=== PATIENT | male | born 1965 | race Caucasian/White ===

== ENCOUNTER → 2016-11-05 | Outpatient (CLI) | payer MEDICARE, OTHER ==
--- NOTE | 2016-11-05 14:33 | XR ---
EXAMINATION TYPE: XR ankle complete RT DATE OF EXAM: 11/05/2016 12:08 PM COMPARISON: NONE HISTORY: 51-year-old male with ankle pain, rolled twice. TECHNIQUE: 3 views FINDINGS: Ankle mortise appears congruent with preservation of the distal tibiofibular overlap. There is anteri or soft tissue swelling. No acute fracture, subluxation, or dislocation seen. IMPRESSION: Anterior soft tissue swelling without acute osseous abnormality seen.
== END ==
LOC: RADXRMAIN 11:49
PROVIDERS: ATTEND Family Medicine
DX: M25.571 Pain in right ankle and joints of right foot (principal)

== ENCOUNTER 2017-12-23 15:34 | Emergency (ER) | payer MEDICARE, OTHER ==
[2017-12-23 15:38] VITALS: BP 154/106; PULSE 95; RESP 18; TEMP 98.4
--- NOTE | 2017-12-23 16:01 | ED ---
Psych HPI - General Chief Complaint: Psychiatric Symptoms Stated Complaint: Mental Health Time Seen by Provider: 12/23/17 15:41 Source: patient, RN notes reviewed Mode of arrival: ambulatory - History of Present Illness Initial Comments: This is a 52-year-old male present emergency Department requesting medication refill. Patient states that he wants to be restarted on his Paxil as he been off for several months. He complains that he hears voices but is not suicidal or homicidal. Here and these for a while. Patient denies any illicit drug use no alcohol abuse. Denies any physical complaints. Patient states that he is not her primary care physician and he has not tried to follow-up on a primary care physician at this time. - Related Data Home Medications Medication Instructions Recorded Confirmed clonazePAM [KlonoPIN] 2 mg PO TID PRN 12/21/13 04/27/14 Previous Rx's Medication Instructions Recorded clonazePAM [KlonoPIN] 2 mg PO TID PRN #6 tab 04/27/14 Allergies Allergy/AdvReac Type Severity Reaction Status Date / Time hydrocodone Allergy Nausea Verified 12/23/17 15:38 Review of Systems ROS Statement: Those systems with pertinent positive or pertinent negative responses have been documented in the HPI. ROS Other: All systems not noted in ROS Statement are negative. Past Medical History Past Medical History: No Reported History History of Any Multi-Drug Resistant Organisms: None Reported Past Surgical History: Orthopedic Surgery Additional Past Surgical History / Comment(s): right ankle. Past Psychological History: ADD/ADHD, Anxiety, Depression, Panic Disorder Smoking Status: Current every day smoker Past Alcohol Use History: None Reported Past Drug Use History: None Reported General Exam Limitations: no limitations General appearance: alert, in no apparent distress Head exam: Present: atraumatic, normocephalic, normal inspection Respiratory exam: Present: normal lung sounds bilaterally. Absent: respiratory distress, wheezes, rales, rhonchi, stridor Cardiovascular Exam: Present: regular rate, normal rhythm, normal heart sounds. Absent: systolic murmur, diastolic murmur, rubs, gallop, clicks Neurological exam: Present: alert Psychiatric exam: Present: normal affect, normal mood Course Vital Signs 12/23/17 15:35 Temperature 98.4 F Pulse Rate 95 Respiratory 18 Rate Blood Pressure 154/106 O2 Sat by Pulse 96 Oximetry Medical Decision Making - Medical Decision Making 52-year-old male presented for medication refill. I requested the patient to be evaluated by psychiatric services given the medication history was seen in the knee has had some auditory hallucinations. Patient refused because he does not want to change into a gown. Patient is making clear conscious decisions patient is not suicidal or homicidal is not agitated he has no bizarre behavior in emergency department. Patient is with family member at this time. Patient will be signed out AGAINST MEDICAL ADVICE. Disposition Clinical Impression: Encounter for medication refill Disposition: Left Against Medical Advice Condition: Stable Referrals: None,Stated [Primary Care Provider] - 1-2 days Time of Disposition: 16:01
== END 2017-12-23 16:16 | disposition left against medical advice (07) ==
LOC: EC 15:34
DX: Z76.0 Encounter for issue of repeat prescription (principal); R44.0 Auditory hallucinations; F17.200 Nicotine dependence, unspecified, uncomplicated; Z88.5 Allergy status to narcotic agent
CPT/HCPCS: 82075; 99284

== ENCOUNTER → 2018-08-16 | Day surgery (SDC) | payer MEDICARE, OTHER ==
[2018-08-11 10:31] VITALS: BMI 31.0
[~2018-08-16] MED LIST: DEXAMETHASONE SOD PHOSPHATE 10 MG/ML 1 ML VIAL IV ONE; FAMOTIDINE 20 MG/2 ML VIAL IV ONE; HYDROmorphone 0.5 MG/0.5 ML SYRINGE IVP PRN; LACTATED RINGERS 1,000 ML IV SCH; LIDOCAINE 1% 20 ML VIAL (10MG/ML) FOR IV START INTRADERMA PRN; LIDOCAINE 1% INJ 10MG/ML (20 ML MDV) ONE; LIDOCAINE 1%-EPI 1:100,000 20 ML VIAL SQ ONE; MIDAZOLAM (PF) 2 MG/2 ML VIAL IV PRN; MIDAZOLAM 2 MG/2 ML VIAL ONE; ONDANSETRON 4 MG/2 ML VIAL IVP ONE; PROPOFOL 10 MG/ML 20 ML VIAL IV ONE; SCOPOLAMINE 1.5MG/72HR PATCH TRANSDERM ONE; SUCCINYLCHOLINE CHLORIDE 100 MG/5 ML SYR IV ONE; ceFAZolin 1,000 MG in DEXTROSE/WATER 1 50ML.BAG IV ONE; fentaNYL (PF) 50 MCG/ML 2 ML AMP ONE
--- NOTE | 2018-08-16 14:18 | P.OP ---
Date of Procedure: 08/16/18 Preoperative Diagnosis: Left anterior neck lipoma Postoperative Diagnosis: Same Procedure(s) Performed: Excision left anterior neck lipoma Anesthesia: CAROLIN Surgeon: Byrno Overton Estimated Blood Loss (ml): 2 Pathology: other (Left anterior neck mass) Condition: stable Disposition: PACU Indications for Procedure: This is a 53-year-old white male with a slowly enlarging left anterior neck mass. Computed tomography scan was most consistent with a lipoma Operative Findings: Approximately 3 cm left anterior neck mass which grossly appeared consistent with a lipoma Description of Procedure: The patient was brought in the operative suite and was a supine position. The patient underwent induction of general anesthesia with oral endotracheal intubation without difficulty. The patient was prepped and draped in usual aseptic fashion. 1% lidocaine with 1 1000 epinephrine was infused subcutaneously and field block fashion. This was left to work for 7 minutes vasoconstrictive effect. A linear incision was then made overlying the mass within a relaxed skin tension line. This was carried sharply through the skin and subcutaneous tissue as well as platysma layer. The lipomatous lesion was identified and excised from the surrounding tissue grossly entirely down to the strap muscles. Hemostasis was gained with electrocautery. Hemostasis was noted to be good. The wound was then closed in layers including the platysmal layer and subcutaneous layers with inverted interrupted 30 and 4-0 Vicryl suture and skin closed with running locking 4-0 Prolene suture. Bacitracin ointment and sterile dressings were placed. The patient was allowed to emerge from anesthesia having tolerated procedure well and was extubated in the operating suite and transferred to postop recovery area in satisfactory condition.
[2018-08-16 14:31] VITALS: TEMP 98.6
[2018-08-16 14:48] VITALS: RESP 16
[2018-08-16 15:21] VITALS: BP 125/86; PULSE 70
== END | disposition home or self-care (01) ==
LOC: OR 11:05
PROVIDERS: ATTEND Otolaryngology
DX: D17.0 Benign lipomatous neoplasm of skin and subcutaneous tissue of head, face and neck (principal); K21.9 Gastro-esophageal reflux disease without esophagitis; J44.9 Chronic obstructive pulmonary disease, unspecified; F17.210 Nicotine dependence, cigarettes, uncomplicated; Z88.5 Allergy status to narcotic agent
CPT/HCPCS: 88304; 21552; C1763; J2250; J1100; J2405; J2001; J3010; J0690; J0330; J2704

== ENCOUNTER 2019-05-26 08:24 | Emergency (ER) | payer MEDICARE, OTHER ==
[2019-05-26 08:34] VITALS: BP 131/93; PULSE 107; RESP 18; TEMP 97.9
[2019-05-26] MEDS ORDERED: PANTOPRAZOLE 40 MG TABLET PO STA (08:45)
--- NOTE | 2019-05-26 08:47 | ED ---
Lower Extremity Injury HPI - General Source: patient, RN notes reviewed Mode of arrival: ambulatory Limitations: no limitations - History of Present Illness MD Complaint: foot injury <Umair Davis - Last Filed: 05/26/19 10:14> <Archana Julio - Last Filed: 05/26/19 10:37> - General Chief Complaint: Extremity Injury, Lower Stated Complaint: Left foot pain/injury Time Seen by Provider: 05/26/19 08:36 - History of Present Illness Initial Comments: This is a 53-year-old male with a history of left ankle surgery in the past who states that he was carotid or about 2 hours ago at his house to get some Pepto- Bismol for his reflux when he rolled his foot. He complains of pain with weightbearing some ecchymosis to the lateral aspect of the left foot. He denies any ankle pain or proximal pain to this no other injuries reported he is having no symptoms right now with respect to reflux he does admit that he drinks on a coughing does smoke cigarettes he has no known history of heart or lung disease. Other than his foot at this time is asymptomatic. (Umair Davis) - Related Data Previous Rx's Medication Instructions Recorded Ibuprofen 800 mg PO Q6HR PRN #20 tablet 05/26/19 Omeprazole [PriLOSEC] 20 mg PO AC-BRKFST #30 cap 05/26/19 Allergies Allergy/AdvReac Type Severity Reaction Status Date / Time hydrocodone AdvReac Nausea Verified 05/26/19 08:31 Review of Systems ROS Other: All systems not noted in ROS Statement are negative. <Umair Davis - Last Filed: 05/26/19 10:14> ROS Other: All systems not noted in ROS Statement are negative. <Archana Julio - Last Filed: 05/26/19 10:37> ROS Statement: Those systems with pertinent positive or pertinent negative responses have been documented in the HPI. Past Medical History Past Medical History: No Reported History Additional Past Medical History / Comment(s): "lesion" on left History of Any Multi-Drug Resistant Organisms: None Reported Past Surgical History: Heart Catheterization, Orthopedic Surgery Additional Past Surgical History / Comment(s): right ankle. Past Anesthesia/Blood Transfusion Reactions: No Reported Reaction Additional Past Anesthesia/Blood Transfusion Reaction / Comment(s): no general anesthesia Past Psychological History: ADD/ADHD, Anxiety, Depression, Panic Disorder Smoking Status: Current every day smoker Past Alcohol Use History: None Reported Past Drug Use History: None Reported - Past Family History Mother Family Medical History: No Reported History <RyanUmair - Last Filed: 05/26/19 10:14> General Exam Limitations: no limitations General appearance: alert, in no apparent distress Head exam: Present: atraumatic, normocephalic, normal inspection Eye exam: Present: normal appearance, PERRL, EOMI. Absent: scleral icterus, conjunctival injection, periorbital swelling ENT exam: Present: normal exam, mucous membranes moist Neck exam: Present: normal inspection. Absent: tenderness, meningismus, lymphadenopathy Respiratory exam: Present: normal lung sounds bilaterally. Absent: respiratory distress, wheezes, rales, rhonchi, stridor Cardiovascular Exam: Present: regular rate, normal rhythm, normal heart sounds. Absent: systolic murmur, diastolic murmur, rubs, gallop, clicks GI/Abdominal exam: Present: soft, normal bowel sounds. Absent: distended, tenderness, guarding, rebound, rigid Extremities exam: Present: full ROM, tenderness (Tenderness palpation over the left lateral foot with some ecchymosis noted no definite step-off or crepitation. There is a well-healed surgical scar to the medial aspect of the ankle.), normal capillary refill. Absent: pedal edema, joint swelling, calf tenderness Back exam: Present: normal inspection Neurological exam: Present: alert, oriented X3, CN II-XII intact Psychiatric exam: Present: normal affect, normal mood Skin exam: Present: warm, dry, intact, normal color. Absent: rash <RyanUmair - Last Filed: 05/26/19 10:14> - General Exam Comments Initial Comments: This is a well-developed well-nourished awake alert oriented 3 male (RyanUmair) Course Vital Signs 05/26/19 08:32 Temperature 97.9 F Pulse Rate 107 H Respiratory 18 Rate Blood Pressure 131/93 O2 Sat by Pulse 97 Oximetry Procedures - Orthopedic Splinting/Casting Injury #1 Side: left Lower Extremity Injury Location: foot Lower Extremity Immobilizer: posterior splint, Cristian wrap, synthetic pre-padded splint Other Orthopedic Equipment: crutches <Archana Julio - Last Filed: 05/26/19 10:37> - Orthopedic Splinting/Casting Injury #1 Additional Comments: She was reevaluated neurovascularly intact. (Archana Julio) Medical Decision Making - EKG Data -: EKG Interpreted by Me EKG shows normal: sinus rhythm - Radiology Data Radiology results: report reviewed (Did review the imaging and report evidence of a proximal fifth left metatarsal fracture.), image reviewed <Umair Davis - Last Filed: 05/26/19 10:14> - Medical Decision Making I did discuss the findings with the patient he will be placed in a splint by my physician graduate assistant. Crutches as well as pain medication also a prescription for Prilosec. He is encouraged to follow-up with a bilingual hr generalist physician as well as with orthopedics and be nonweightbearing (Umair Davis) - EKG Data EKG Comments: EKG shows normal sinus rhythm 86. Interval 150 to QRS duration 94 QT since QTC 370/442 nonspecific inferior figure aeration no acute ST elevation or depressions. (Umair Davis) Disposition Is patient prescribed a controlled substance at d/c from ED?: No <Umair Davis - Last Filed: 05/26/19 10:14> <Archana Julio - Last Filed: 05/26/19 10:37> Clinical Impression: Fracture of foot, Nondisplaced fracture of fifth left metatarsal bone, GERD (gastroesophageal reflux disease) Disposition: HOME SELF-CARE Condition: Good Instructions (If sedation given, give patient instructions): Foot Fracture in Adults (ED), Gastroesophageal Reflux Disease (ED) Additional Instructions: Prescriptions sent to your preferred [facility] pharmacy Prescriptions: Ibuprofen 800 mg PO Q6HR PRN #20 tablet PRN Reason: Pain Omeprazole [PriLOSEC] 20 mg PO AC-BRKFST #30 cap Referrals: None,Stated [Primary Care Provider] - 1-2 days Brandon Amador DO [Doctor of Osteopathic Medicine] - 1-2 days
--- NOTE | 2019-05-26 09:47 | XR ---
EXAMINATION TYPE: XR foot complete LT , 3 VIEWS DATE OF EXAM ORDERED: 05/26/2019 HISTORY: Left foot pain with ecchymosis. COMPARISON: None. FINDINGS: There is mild cystic change in the fifth metatarsal head. There is a minimally displaced f racture the base of the fifth metatarsal. There has been a previous screw fixation of the medial mall eolus. No additional fractures are seen. IMPRESSION: 1. MINIMALLY DISPLACED FRACTURE THE BASE OF THE FIFTH METATARSAL. 2. SCREW FIXATION OF THE MEDIAL MALLEOLUS. CODE A: INITIAL ENCOUNTER FOR CLOSED FRACTURE.
[2019-05-26] MEDS ORDERED: IBUPROFEN 800 MG TAB PO STA (10:20)
== END 2019-05-26 10:39 | disposition home or self-care (01) ==
LOC: EC 08:24
DX: S92.355A Nondisplaced fracture of fifth metatarsal bone, left foot, initial encounter for closed fracture (principal); K21.9 Gastro-esophageal reflux disease without esophagitis; F17.200 Nicotine dependence, unspecified, uncomplicated; Z88.5 Allergy status to narcotic agent; X58.XXXA Exposure to other specified factors, initial encounter
CPT/HCPCS: 29515; 93005; 99283

== ENCOUNTER 2023-02-13 17:38 | Emergency (ER) | payer MEDICARE, OTHER ==
[2023-02-13 17:45] VITALS: BP 191/130; PULSE 96; RESP 20; TEMP 97.7
--- NOTE | 2023-02-13 18:05 | ED ---
General Adult HPI - General Chief complaint: Psychiatric Symptoms Stated complaint: FORCE FED COCKROACHES Time Seen by Provider: 02/13/23 18:02 Source: patient Mode of arrival: ambulatory Limitations: no limitations - Related Data Previous Rx's Medication Instructions Recorded Ibuprofen 800 mg PO Q6HR PRN #20 tablet 05/26/19 Omeprazole [PriLOSEC] 20 mg PO AC-BRKFST #30 cap 05/26/19 Allergies Allergy/AdvReac Type Severity Reaction Status Date / Time hydrocodone AdvReac Nausea Verified 02/13/23 17:41 Review of Systems ROS Statement: Those systems with pertinent positive or pertinent negative responses have been documented in the HPI. ROS Other: All systems not noted in ROS Statement are negative. Past Medical History Past Medical History: No Reported History Additional Past Medical History / Comment(s): "lesion" on left History of Any Multi-Drug Resistant Organisms: None Reported Past Surgical History: Heart Catheterization, Orthopedic Surgery Additional Past Surgical History / Comment(s): right ankle. Past Anesthesia/Blood Transfusion Reactions: No Reported Reaction Additional Past Anesthesia/Blood Transfusion Reaction / Comment(s): no general anesthesia Past Psychological History: ADD/ADHD, Anxiety, Depression, Panic Disorder Smoking Status: Current every day smoker Past Alcohol Use History: None Reported Past Drug Use History: None Reported - Past Family History Mother Family Medical History: No Reported History General Exam Limitations: no limitations Course Vital Signs 02/13/23 17:42 Temperature 97.7 F Pulse Rate 96 Respiratory 20 Rate Blood Pressure 191/130 O2 Sat by Pulse 97 Oximetry Medical Decision Making - Medical Decision Making Patient left before being seen by provider. Disposition Clinical Impression: Psychiatric care Disposition: LEFT W/O BEING SEEN BY PHYS Referrals: None,Stated [Primary Care Provider] - 1-2 days Time of Disposition: 18:05
== END 2023-02-13 18:10 | disposition left against medical advice (07) ==
LOC: EC 17:38
DX: Z00.8 Encounter for other general examination (principal); F17.200 Nicotine dependence, unspecified, uncomplicated; Z53.21 Procedure and treatment not carried out due to patient leaving prior to being seen by health care provider; Z86.59 Personal history of other mental and behavioral disorders
CPT/HCPCS: 99499